=== PATIENT | male | born 1985 | race Caucasian/White ===

== ENCOUNTER 2018-12-06 08:55 | Inpatient (IN) | payer OTHER ==
[~2018-12-06] VITALS: Ht 177.8 cm; Wt 99.3 kg
[2018-12-06] MEDS ORDERED: HYDROCODON-ACE1 EA10 PO (09:42)
[2018-12-06 09:55] VITALS: BP 112/58; BMI 31.6
[2018-12-07 00:47] VITALS: BP 115/81; BMI 31.4
[2018-12-07 03:25] VITALS: BP 146/76
[2018-12-07 06:00] LABS: BASOPHILS 0.1 % (0-2); EOSINOPHILS 0 % (0-7); HEMOGLOBIN 12.4 g/dL (13.5-17.5); IMMATURE GRANULOCYTES 0.3 % (0-5); LYMPHOCYTES 18.3 % (15-50); MCH 30.8 pg (26.0-34.0); MCHC 34.4 g/dL (31.0-37.0); MCV 89.3 fL (80.0-100.0); MEAN PLATELET VOLUME 9.2 fL (7.4-10.4); MONOCYTES 11.2 % (2-11); NEUTROPHILS 70.1 % (40-80); PLATELET COUNT 303 10x3/uL (130-400); RBC 4.03 10x6/uL (4.20-6.10); WBC 14.8 10x3/uL (4.8-10.8)
[2018-12-07 06:11] LABS: CALC OSMOLALITY 279 mosm/kg (275-300); CALCIUM 8.1 mg/dL (8.5-10.1); CARBON DIOXIDE 27.5 mmol/L (21.0-32.0); CHLORIDE - SERUM 105 mmol/L (98-107); CREATININE - SERUM 0.9 mg/dL (0.6-1.3); GLUCOSE 129 mg/dL (74-106); POTASSIUM - SERUM 4.1 mmol/L (3.5-5.1); SODIUM 140 mmol/L (136-145); UREA NITROGEN 9 mg/dL (7-18); eGFR NON AFRICAN AMERICAN > 90 mL/min (90-120)
[2018-12-07 08:20] VITALS: BP 141/76
[2018-12-07 13:08] VITALS: BP 149/84
[2018-12-07 16:33] VITALS: BP 147/78
[2018-12-07 21:48] VITALS: BP 165/79
[2018-12-08 04:59] LABS: BASOPHILS 0.2 % (0-2); EOSINOPHILS 0.9 % (0-7); HEMATOCRIT 36.5 % (42.0-54.0); HEMOGLOBIN 12.4 g/dL (13.5-17.5); IMMATURE GRANULOCYTES 0.4 % (0-5); LYMPHOCYTES 36.5 % (15-50); MCH 30.8 pg (26.0-34.0); MCV 90.8 fL (80.0-100.0); MEAN PLATELET VOLUME 8.9 fL (7.4-10.4); MONOCYTES 9.9 % (2-11); NEUTROPHILS 52.1 % (40-80); PLATELET COUNT 293 10x3/uL (130-400); RBC 4.02 10x6/uL (4.20-6.10); RDW 13.1 % (11.5-14.5); WBC 11.1 10x3/uL (4.8-10.8)
[2018-12-08 05:26] LABS: ALBUMIN 2.4 g/dL (3.4-5.0); ALKALINE PHOSPHATASE 79 U/L (46-116); ALT (SGPT) 33 U/L (10-68); BILIRUBIN - TOTAL 0.36 mg/dL (0.2-1.3); CALC OSMOLALITY 280 mosm/kg (275-300); CARBON DIOXIDE 26.8 mmol/L (21.0-32.0); CHLORIDE - SERUM 106 mmol/L (98-107); CREATININE - SERUM 0.8 mg/dL (0.6-1.3); GLUCOSE 110 mg/dL (74-106); POTASSIUM - SERUM 4.2 mmol/L (3.5-5.1); SODIUM 141 mmol/L (136-145); UREA NITROGEN 9 mg/dL (7-18); eGFR NON AFRICAN AMERICAN > 90 mL/min (90-120)
[2018-12-08 06:07] VITALS: BP 174/84
[2018-12-08 09:24] VITALS: BP 178/73
[2018-12-08 12:58] VITALS: BP 157/84
[2018-12-08 13:17] VITALS: Ht 177.8 cm; Wt 99.3 kg
--- NOTE | 2018-12-08 15:48 | MORECARE ---
CASE MANAGEMENT DISCHARGE SUMMARY PATIENT: KATRINA LAZCANO UNIT: [id number] ADM DATE: 12/06/18 AGE: 33 : 85 SEX: M ROOM/BED: D.2239 AUTHOR: CHINA LINO PHYSICIAN: REFERRING PHYSICIAN: EMILY STARKS MD DATE OF SERVICE: 12/08/18 Discharge Plan Patient Name: KATRINA LAZCANO Facility: [facility]:[place] : 1985 Planned Disposition: Home Anticipated Discharge Date: Discharge Date: Expected LOS: Initial Reviewer: [email or web address] Initial Review Date: 12/08/2018 Generated: 12/08/18 4:48 pm Comments DCP- Discharge Planning Updated by [email or web address]: Pratima Suresh on 12/08/18 2:[address] Patient Name: KATRINA LAZCANO Admission Status: Elective Accout number: [id number] Admission Date: 12-06-2018 : 1985 Admission Diagnosis:FRACTURE OF UNSP PART OF RIGHT CLAVICLE, Attending: EMILY STARKS Current LOS: 2 Anticipated DC Date: Planned Disposition: Home Primary Insurance: [employer] MANAGED MEDICAID Discharge Planning Comments: CM met with patient to complete initial dc planning assessment. CM educated patient on the CM role and verbal consent given by patient to complete assessment. Patient lives at home with his and 4 year old daughter. At discharge patient plans to return and feels this is a safe discharge. CM discussed availability of home health, rehab services, and medical equipment. Patient denied known discharge needs at this time. 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 Patient states they are building a wheelchair ramp into the home. CM will continue to follow and will assist as needed with dc plans/needs. Teacher Dancing: Pratima Suresh DCPIA - Discharge Planning Initial Assessment Updated by [email or web address]: Pratima Suresh on 12/08/18 3:44 pm * Is the patient Alert and Oriented? Yes * How many steps to enter\exit or inside your home? 2/0 * PCP Dr. Kwan in [place] * Pharmacy [facility] in [place] * Preadmission Environment Home with Family * ADLs Independent * Equipment Wheelchair * List name and contact numbers for known caregivers / representatives who currently or will assist patient after discharge: Lila pena - [phone] * Verbal permission to speak to the caregivers and representatives has been obtained from the patient. Yes * Community resources currently utilized None * Additional services required to return to the preadmission environment? No * Can the patient safely return to the preadmission environment? Yes * Has this patient been hospitalized within the prior 30 days at any hospital? No Patient Name: KATRINA LAZCANO Page [id number] at 1548 All edits/amendments must be made on the electronic document DICTATION DATE: 12/08/18 1548 INFUSION NURSE: GURU 12/08/18 1548 RPT#: [id number] DC DATE: STATUS: ADM IN [facility] [address] [place] [address] END OF REPORT
[2018-12-08 16:32] VITALS: BP 154/85
[2018-12-08 20:43] VITALS: BP 151/80
[2018-12-09 04:48] VITALS: BP 151/81
[2018-12-09 06:32] LABS: BASOPHILS 0.3 % (0-2); EOSINOPHILS 1.5 % (0-7); HEMATOCRIT 39.1 % (42.0-54.0); HEMOGLOBIN 13.6 g/dL (13.5-17.5); IMMATURE GRANULOCYTES 1.1 % (0-5); LYMPHOCYTES 30.3 % (15-50); MCH 31.3 pg (26.0-34.0); MCHC 34.8 g/dL (31.0-37.0); MCV 89.9 fL (80.0-100.0); MEAN PLATELET VOLUME 8.8 fL (7.4-10.4); MONOCYTES 12.5 % (2-11); NEUTROPHILS 54.3 % (40-80); PLATELET COUNT 330 10x3/uL (130-400); RBC 4.35 10x6/uL (4.20-6.10); RDW 12.7 % (11.5-14.5)
[2018-12-09 06:56] LABS: ALBUMIN 2.7 g/dL (3.4-5.0); ALKALINE PHOSPHATASE 113 U/L (46-116); ALT (SGPT) 80 U/L (10-68); BILIRUBIN - TOTAL 0.35 mg/dL (0.2-1.3); CALC OSMOLALITY 273 mosm/kg (275-300); CALCIUM 8.7 mg/dL (8.5-10.1); CARBON DIOXIDE 27.3 mmol/L (21.0-32.0); CHLORIDE - SERUM 103 mmol/L (98-107); CREATININE - SERUM 0.8 mg/dL (0.6-1.3); GLUCOSE 115 mg/dL (74-106); POTASSIUM - SERUM 4.6 mmol/L (3.5-5.1); PROTEIN - SERUM 6.9 g/dL (6.4-8.2); SODIUM 137 mmol/L (136-145); UREA NITROGEN 11 mg/dL (7-18); eGFR NON AFRICAN AMERICAN > 90 mL/min (90-120)
[2018-12-09 08:58] VITALS: BP 157/90
[2018-12-09 14:14] VITALS: BP 120/71
[2018-12-09 17:27] VITALS: BP 145/80
[2018-12-09 20:18] VITALS: BP 142/81
[2018-12-10 00:37] VITALS: BP 110/67
[2018-12-10 06:05] LABS: BASOPHILS 0.5 % (0-2); EOSINOPHILS 1.6 % (0-7); HEMOGLOBIN 12.9 g/dL (13.5-17.5); IMMATURE GRANULOCYTES 3.1 % (0-5); LYMPHOCYTES 30.7 % (15-50); MCH 30.5 pg (26.0-34.0); MCHC 33.9 g/dL (31.0-37.0); MCV 89.8 fL (80.0-100.0); MEAN PLATELET VOLUME 8.6 fL (7.4-10.4); MONOCYTES 11.7 % (2-11); NEUTROPHILS 52.4 % (40-80); PLATELET COUNT 343 10x3/uL (130-400); RBC 4.23 10x6/uL (4.20-6.10); RDW 12.7 % (11.5-14.5); WBC 11.4 10x3/uL (4.8-10.8)
[2018-12-10 06:22] LABS: ALBUMIN 2.6 g/dL (3.4-5.0); ALKALINE PHOSPHATASE 123 U/L (46-116); ALT (SGPT) 73 U/L (10-68); BILIRUBIN - TOTAL 0.33 mg/dL (0.2-1.3); CALC OSMOLALITY 276 mosm/kg (275-300); CALCIUM 8.4 mg/dL (8.5-10.1); CHLORIDE - SERUM 104 mmol/L (98-107); CREATININE - SERUM 0.9 mg/dL (0.6-1.3); GLUCOSE 109 mg/dL (74-106); POTASSIUM - SERUM 4.5 mmol/L (3.5-5.1); PROTEIN - SERUM 6.5 g/dL (6.4-8.2); SODIUM 137 mmol/L (136-145); UREA NITROGEN 17 mg/dL (7-18); VANCOMYCIN - TROUGH 14.1 ug/mL (10.0-20.0); eGFR NON AFRICAN AMERICAN > 90 mL/min (90-120)
[2018-12-10 08:30] VITALS: BP 147/69
[2018-12-10 13:20] VITALS: BP 160/91
[2018-12-10 16:12] VITALS: BP 123/69
[2018-12-10 20:33] VITALS: BP 124/61
[2018-12-11 05:08] VITALS: BP 120/80
[2018-12-11 06:24] LABS: BASOPHILS 0.7 % (0-2); EOSINOPHILS 1.2 % (0-7); HEMATOCRIT 37.6 % (42.0-54.0); HEMOGLOBIN 12.6 g/dL (13.5-17.5); IMMATURE GRANULOCYTES 4.5 % (0-5); LYMPHOCYTES 21.4 % (15-50); MCH 30.2 pg (26.0-34.0); MCHC 33.5 g/dL (31.0-37.0); MCV 90.2 fL (80.0-100.0); MEAN PLATELET VOLUME 8.6 fL (7.4-10.4); MONOCYTES 13.1 % (2-11); NEUTROPHILS 59.1 % (40-80); PLATELET COUNT 374 10x3/uL (130-400); RBC 4.17 10x6/uL (4.20-6.10); RDW 12.6 % (11.5-14.5); WBC 10.2 10x3/uL (4.8-10.8)
[2018-12-11 06:51] LABS: ALBUMIN 2.7 g/dL (3.4-5.0); ALKALINE PHOSPHATASE 125 U/L (46-116); ALT (SGPT) 64 U/L (10-68); BILIRUBIN - TOTAL 0.27 mg/dL (0.2-1.3); CALC OSMOLALITY 280 mosm/kg (275-300); CALCIUM 8.6 mg/dL (8.5-10.1); CARBON DIOXIDE 27.2 mmol/L (21.0-32.0); CHLORIDE - SERUM 103 mmol/L (98-107); CREATININE - SERUM 0.9 mg/dL (0.6-1.3); GLUCOSE 108 mg/dL (74-106); POTASSIUM - SERUM 4.3 mmol/L (3.5-5.1); PROTEIN - SERUM 6.5 g/dL (6.4-8.2); SODIUM 139 mmol/L (136-145); UREA NITROGEN 17 mg/dL (7-18); eGFR NON AFRICAN AMERICAN > 90 mL/min (90-120)
[2018-12-11 09:11] VITALS: BP 120/63
[2018-12-11] MEDS ORDERED: ASPIRIN325 MG PO (11:34)
[2018-12-11] MEDS ORDERED: DOXYCYCLINE HY100 M2 PO (11:35)
[2018-12-11] MEDS ORDERED: BACTRIM 400-801 TAB PO (12:43)
[2018-12-11] MEDS ORDERED: BAYER CHEWABLE81 MG PO (12:44)
--- NOTE | 2018-12-11 13:25 | MORECARE ---
CASE MANAGEMENT DISCHARGE SUMMARY PATIENT: KATRINA LAZCANO UNIT: [id number] ADM DATE: 12/06/18 AGE: 33 : 85 SEX: M ROOM/BED: D.2239 AUTHOR: CHINA LINO PHYSICIAN: REFERRING PHYSICIAN: EMILY STARKS MD DATE OF SERVICE: 12/11/18 Discharge Plan Patient Name: KATRINA LAZCANO Facility: [facility]:[place] : 1985 Planned Disposition: Home Anticipated Discharge Date: Discharge Date: 12/11/2018 Expected LOS: Initial Reviewer: [email or web address] Initial Review Date: 12/08/2018 Generated: 12/11/18 2:24 pm Comments DCP- Discharge Planning Updated by [email or web address]: Pratima Suresh on 12/08/18 2:[address] Patient Name: KATRINA LAZCANO Admission Status: Elective Accout number: [id number] Admission Date: 12-06-2018 : 1985 Admission Diagnosis:FRACTURE OF UNSP PART OF RIGHT CLAVICLE, Attending: EMILY STARKS Current LOS: 2 Anticipated DC Date: Planned Disposition: Home Primary Insurance: [employer] MANAGED MEDICAID Discharge Planning Comments: CM met with patient to complete initial dc planning assessment. CM educated patient on the CM role and verbal consent given by patient to complete assessment. Patient lives at home with his and 4 year old daughter. At discharge patient plans to return and feels this is a safe discharge. CM discussed availability of home health, rehab services, and medical equipment. Patient denied known discharge needs at this time. 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 Patient states they are building a wheelchair ramp into the home. CM will continue to follow and will assist as needed with dc plans/needs. Electrologist: Pratima Suresh DCPIA - Discharge Planning Initial Assessment Updated by [email or web address]: Pratima Suresh on 12/08/18 3:44 pm * Is the patient Alert and Oriented? Yes * How many steps to enter\exit or inside your home? 2/0 * PCP Dr. Kwan in [place] * Pharmacy [facility] in [place] * Preadmission Environment Home with Family * ADLs Independent * Equipment Wheelchair * List name and contact numbers for known caregivers / representatives who currently or will assist patient after discharge: Lila pena - [phone] * Verbal permission to speak to the caregivers and representatives has been obtained from the patient. Yes * Community resources currently utilized None * Additional services required to return to the preadmission environment? No * Can the patient safely return to the preadmission environment? Yes * Has this patient been hospitalized within the prior 30 days at any hospital? No Last DP export: 12/08/18 2:48 p Patient Name: KATRINA LAZCANO Page [id number] at 1325 All edits/amendments must be made on the electronic document DICTATION DATE: 12/11/18 132 DETAIL SUPERVISOR: GURU 12/11/18 1324 RPT#: [id number] DC DATE:12/11/18 STATUS: DIS IN [facility] [address] [place] [address] END OF REPORT
== END 2018-12-11 13:03 | disposition home or self-care (01) | DRG 493 ==
LOC: D.OPS 08:55 → D.MS 18:34
PROVIDERS: Emergency Medicine; ADMIT Orthopaedic Surgery; ATTEND Orthopaedic Surgery
PROC: 0QSJ04Z Reposition Right Fibula with Internal Fixation Device, Open Approach (ICD-10-PCS; principal; 2018-12-06 12:15)
PROC: 0PS904Z Reposition Right Clavicle with Internal Fixation Device, Open Approach (ICD-10-PCS; 2018-12-06 12:15)
PROC: 0LSQ0ZZ Reposition Right Knee Tendon, Open Approach (ICD-10-PCS; 2018-12-06 12:15)
DX: S82.831A Other fracture of upper and lower end of right fibula, initial encounter for closed fracture (principal); D62 Acute posthemorrhagic anemia; F17.213 Nicotine dependence, cigarettes, with withdrawal; X58.XXXA Exposure to other specified factors, initial encounter; S42.021A Displaced fracture of shaft of right clavicle, initial encounter for closed fracture; S76.911A Strain of unspecified muscles, fascia and tendons at thigh level, right thigh, initial encounter

== ENCOUNTER → 2019-02-05 14:23 | Outpatient (CLI) | payer OTHER ==
[2018-12-08 13:17] VITALS: BMI 31.4
[~2019-02-05 14:23] MED LIST: ASPIRIN325 MG PO; BACTRIM 400-801 TAB PO; BAYER CHEWABLE81 MG PO; DOXYCYCLINE HY100 M2 PO; HYDROCODON-ACE1 EA10 PO
== END | disposition home or self-care (01) ==
LOC: D.LABREF 14:23
PROVIDERS: ATTEND Orthopaedic Surgery
DX: M25.571 Pain in right ankle and joints of right foot (principal)

== ENCOUNTER 2020-11-01 13:18 | Emergency (ER) | payer OTHER ==
[~2020-11-01] VITALS: Ht 177.8 cm; Wt 100.0 kg
[2020-11-01 13:23] VITALS: Ht 177.8 cm; Wt 100.0 kg
[2020-11-01] MEDS ORDERED: HYDROCODON-ACE1 EAC7 PO (15:52)
[2020-11-01] MEDS ORDERED: CLEOCIN HCL300 MG PO (15:52)
[2020-11-01] MEDS ORDERED: DICLOFENAC SODI50 MG PO (15:52)
[2020-11-01 16:54] VITALS: BP 134/89
== END 2020-11-01 17:35 | disposition home or self-care (01) ==
LOC: D.ER 13:18
DX: S61.422A Laceration with foreign body of left hand, initial encounter (principal); X58.XXXA Exposure to other specified factors, initial encounter; S67.22XA Crushing injury of left hand, initial encounter